=== PATIENT | female | born 1950 | race Caucasian/White ===

== ENCOUNTER → 2017-04-13 | Outpatient (CLI) | payer MEDICARE ==
[~2017-04-13] VITALS: Ht 157.5 cm; Wt 64.0 kg
[~2017-04-13] MED LIST: CALCIUM 500 +1 EAC2 PO; CLARITIN10 M3 PO; ECOTRIN325 MG PO; LISINOPRIL-HCTZ1 T15 PO; NAPROSYN-EC500 MG PO; NEURONTIN300 MG PO
[2017-04-13 14:39] LABS: BILIRUBIN,TOTAL 0.5 mg/dL (0.2-2.0); BUN/CREATININE RATIO 17.14; CALCIUM SERUM 9.3 mg/dL (8.4-10.2); CREATININE SERUM 0.7 mg/dL (0.6-1.4); GLOM FILT RATE Estimated 90.9 mL/min (>60); POTASSIUM 3.1 mmol/L (3.5-5.1); PROTEIN TOTAL SERUM 6.9 g/dL (6.0-8.3)
== END | disposition home or self-care (01) ==
LOC: CSSDAY 10:00
PROVIDERS: Family Medicine
DX: M81.0 Age-related osteoporosis without current pathological fracture (principal)
CPT/HCPCS: 80053

== ENCOUNTER → 2017-04-20 | Outpatient (CLI) | payer MEDICARE | END | disposition home or self-care (01) | LOC: CSSDAY 12:50 | DX: M81.0 Age-related osteoporosis without current pathological fracture (principal) | CPT/HCPCS: 96365; 96375; J3489 ==